=== PATIENT | female | born 1995 | race Caucasian/White ===

== ENCOUNTER 2018-08-10 12:42 | Emergency (ER) | payer OTHER ==
[~2018-08-10] VITALS: Ht 147.3 cm; Wt 33.1 kg
[2018-08-10 12:54] VITALS: BP 116/67; PULSE 104; Ht 147.3 cm; Wt 33.1 kg
[2018-08-10] MEDS ORDERED: MECLIZINE 12.5 MG TAB PO ONE (13:30)
[2018-08-10] MEDS ORDERED: MECL-77 PO (15:28)
[2018-08-10] MEDS ORDERED: NITR-58 PO (15:28)
[2018-08-10 15:34] VITALS: RESP 18
--- NOTE | 2018-08-10 15:51 | ERD ---
ER Documentation Chief Complaint Chief Complaint MONTOYA TODAY. DIZZINESS X1 DAY LAST WEEK HPI 23-year-old female presenting with headache and dizziness times 1 day. No vomiting. No fevers. No changes in vision. No recent head injury. Has not taken medications for symptoms. Has never had this before. Has normal appetite with normal fluid intake. Denies medical problems. NKDA. Surgical history denies. Up-to-date on vaccinations. LNMP July 05. ROS All systems reviewed and are negative except as per history of present illness. Medications Home Meds Active Scripts Meclizine Hcl* (Meclizine Hcl*) 25 Mg Tablet, 25 MG PO Q8H PRN for DIZZINESS, #10 TAB Prov:ELMA VICTOR PA-C 08/10/18 Nitrofurantoin Monohyd Macrocr* (Macrobid*) 100 Mg Capsr, 100 MG PO BID for 14 Days, CAP Prov:ELMA VICTOR PA-C 08/10/18 Allergies Allergies: Coded Allergies: No Known Allergy (Unverified , 08/10/18) PMhx/Soc Hx Alcohol Use: No Hx Substance Use: No Hx Tobacco Use: No Smoking Status: Never smoker FmHx Family History: No diabetes, No coronary disease, No other Physical Exam Vitals Vital Signs Date Temp Pulse Resp B/P (MAP) Pulse Ox O2 O2 Flow FiO2 Time Delivery Rate 08/10/18 98.1 18 99 Room Air 15:34 08/10/18 98.1 104 18 116/67 97 12:54 (83) Physical Exam GENERAL: The patient is well-appearing, well-nourished, in no acute distress HEENT: Atraumatic. Conjunctivae are pink. Pupils equal, round, and reactive to light. There is no scleral icterus. Tympanic membranes clear bilaterally. Oropharynx clear. CHEST: Clear to auscultation bilaterally. There are no rales, wheezes or rhonchi. HEART: Regular rate and rhythm. No murmurs, clicks, rubs or gallops. NEUROLOGIC: Alert and oriented. Cranial nerves II through XII intact. Motor strength in all 4 extremities with 5 out of 5 strength. Sensation grossly intact. Normal speech and gait. Babinski negative. DTR 2+ throughout. SKIN: There is no apparent rash or petechiae. The skin is warm and dry. Results 24 hrs Laboratory Tests Test 08/10/18 13:42 08/10/18 13:57 Bedside Urine pH (LAB) 7.0 Bedside Urine Protein (LAB) Negative Bedside Urine Glucose (UA) Negative Bedside Urine Ketones (LAB) Negative Bedside Urine Blood Trace-intact Bedside Urine Nitrite (LAB) Negative Bedside Urine Leukocyte Esterase (L 2+ POC Beta HCG, Qualitative NEGATIVE Current Medications Medications Dose Sig/Lee Start Time Status Last (Trade) Ordered Route PRN Stop Time Admin Dose Reason Admin Meclizine 12.5 mg ONCE ONCE 08/10/18 DC 08/10/18 HCl PO 13:30 14:02 (Antivert) 08/10/18 13:31 Procedures/MDM ER course: Urine done which showed signs of infection. Meclizine given. Upon reevaluation patient symptoms improved. MDM: 23-year-old female presenting with dizziness and headache. Patient's neuro exam is within normal limits and patient is able to ambulate without difficulties. Patient did have findings consistent with urinary tract infection I will treat with antibiotics. I have low suspicion for bacterial HEENT infection. I have low suspicion for meningitis or sepsis. Patient is discharged stricter precautions and told to follow-up with primary care within 1-2 days for close evaluation. All questions answered at discharge Departure Diagnosis: Primary Impression: UTI (urinary tract infection) Additional Impression: Dizziness Condition: Stable Patient Instructions: Understanding Urinary Tract Infections (UTIs), Dizziness, Unk Cause Referrals: COMMUNITY CLINICS YOU HAVE RECEIVED A MEDICAL SCREENING EXAM AND THE RESULTS INDICATE THAT YOU DO NOT HAVE A CONDITION THAT REQUIRES URGENT TREATMENT IN THE EMERGENCY DEPARTMENT. FURTHER EVALUATION AND TREATMENT OF YOUR CONDITION CAN WAIT UNTIL YOU ARE SEEN IN YOUR DOCTORS OFFICE WITHIN THE NEXT 1-2 DAYS. IT IS YOUR RESPONSIBILITY TO MAKE AN APPOINTMENT FOR FOLOW-UP CARE. IF YOU HAVE A PRIMARY DOCTOR --you should call your primary doctor and schedule an appointment IF YOU DO NOT HAVE A PRIMARY DOCTOR YOU CAN CALL OUR PHYSICIAN REFERRAL HOTLINE AT IF YOU CAN NOT AFFORD TO SEE A PHYSICIAN YOU CAN CHOSE FROM THE FOLLOWING [facility] [address] [facility] [address] [facility] [address] [facility] [address] [facility]. [facility] [address] [facility]. [facility] [address] Additional Instructions: FOLLOW UP WITH YOUR PRIMARY CARE PHYSICIAN TOMORROW.Return to this facility if you are not improving as expected. ELMA VICTOR PA-C Aug 10, 2018 15:51
== END 2018-08-10 15:34 | disposition home or self-care (01) ==
LOC: FTE 12:42
DX: N39.0 Urinary tract infection, site not specified (principal)
CPT/HCPCS: 81003; 81025; Z7502; Z7610; 99283